=== PATIENT | female | born 1980 | race Caucasian/White ===

== ENCOUNTER 2020-01-01 16:13 | Emergency (ER) | payer MEDICAID ==
[~2020-01-01] VITALS: Ht 160 cm; Wt 62.0 kg
[2020-01-01 16:15] VITALS: BP 120/84
[2020-01-01] MEDS ORDERED: CEFTRIAXONE SODIUM 250 MG/VIAL IM ONE (17:30)
[2020-01-01] MEDS ORDERED: AZITHROMYCIN 500 MG TABLET PO ONE (17:30)
[2020-01-01 17:46] LABS: COLOR URINE YELLOW (YELLOW); KETONES URINE NEGATIVE (NEGATIVE); LEUKOCYTE ESTERASE URINE NEGATIVE (NEGATIVE); NITRITE URINE NEGATIVE (NEGATIVE); OCCULT BLOOD URINE 2+ (NEGATIVE); PROTEIN URINE NEGATIVE (NEGATIVE); SPECIFIC GRAVITY URINE 1.023 (1.005-1.030); UROBILINOGEN URINE 0.2 E.U./dL (0.2-1.0)
[2020-01-01 17:50] LABS: CLARITY URINE SL HAZY (CLEAR)
[2020-01-01] MEDS ORDERED: LIDOCAINE HCL 1% 20ML VIAL (Pyxis) INJ ONE (18:03)
[2020-01-04 04:07] LABS: NEISSERIA GONORRHOEAE NAA Negative (Negative)
== END 2020-01-01 18:15 | disposition home or self-care (01) ==
LOC: ER 16:13
DX: A64 Unspecified sexually transmitted disease (principal)
CPT/HCPCS: 81003; 81025; 87210; 87491; 87591; 96372; 99283; J0696; J3490